=== PATIENT | male | born 1945 | race Caucasian/White ===

== ENCOUNTER 2024-04-17 21:13 | Emergency (ER) | payer MEDICARE ==
[~2024-04-17] VITALS: Ht 182.9 cm; Wt 75.0 kg
[2024-04-17 21:25] VITALS: O2SAT 96
[2024-04-17] MEDS ORDERED: NAPR500T7 MT (23:55)
[2024-04-18] MEDS: KETOROLAC 30MG/ML VIAL IM ONE (00:09)
[2024-04-18 00:26] VITALS: BP 111/66; PULSE 61; RESP 18; TEMP 97.5
== END 2024-04-18 00:27 | disposition home or self-care (01) ==
LOC: ER 21:13
DX: G89.29 Other chronic pain (principal); M54.50 Low back pain, unspecified
CPT/HCPCS: 99283; 96372; J1885